=== PATIENT | female | born 1990 | race African-American/Black ===

== ENCOUNTER 2020-06-17 18:15 | Emergency (ER) | payer MEDICAID, OTHER ==
[~2020-06-17] VITALS: Ht 165.1 cm; Wt 91.2 kg
[~2020-06-17 18:15] MED LIST: ADVAIR; ALBUTEROL; MONT10TA35 PO; [UNRECOGNIZED DRUG - CODE] PO
[2020-06-17 18:20] VITALS: BP 127/61
--- NOTE | 2020-06-17 18:23 | NUR ---
Pt ambulated to bed 11.
--- NOTE | 2020-06-17 18:36 | NUR ---
29 Y/O FEMALE C/O VAGINAL BLEEDING X1 DAY. PT STATES SHE IS 4 WEEKS . DENIES ANY RECENT INJURY/TRAUMA. PT STATES SHE IS HAVING MICROCLOTS, AND SCANT BLEEDING. PT IS NOT SOAKING PERIPADS AT THIS TIME. PT IS EXPERIENCING PELVIC CRAMPING, 4/10PAIN. DENIES ANY VOMITING. PT STATES SHE IS HAVING MILD WEAKNESS/DIZZINESS. RESP EVEN AND UNLABORED. AMBULATORY WITH STEADY GAIT. . PMH: ASTHMA
--- NOTE | 2020-06-17 19:15 | NUR ---
RECEIVED REPORT FROM ANGELITO MCGOVERN
--- NOTE | 2020-06-17 19:15 | NUR ---
ULTRASOUND AT BEDSIDE
[2020-06-17 19:18] LABS: BASOPHILS # (AUTO) 0.1 K/uL (0.00-0.22); BASOPHILS % (AUTO) 0.9 % (0.0-2.0); EOSINOPHILS # (AUTO) 0.7 K/uL (0-0.4); EOSINOPHILS % (AUTO) 7.3 % (0.0-4.0); HEMATOCRIT 40.5 % (36-48); LYMPHOCYTES # (AUTO) 2.1 K/uL (2.5-16.5); LYMPHOCYTES % (AUTO) 21.3 % (20.5-51.1); MEAN CORPUSCULAR HEMOGLOBIN 27 pg (27-31); MEAN CORPUSCULAR HGB CONC 32 g/dL (33-37); MEAN CORPUSCULAR VOLUME 85.1 fL (80-94); MONOCYTES # (AUTO) 0.5 K/uL (0.8-1.0); MONOCYTES % (AUTO) 5.3 % (1.7-9.3); NEUTROPHILS # (AUTO) 6.3 K/uL (1.8-7.7); NEUTROPHILS % (AUTO) 65.2 % (42.2-75.2); PLATELET COUNT (AUTO) 306 K/uL (140-450); RED BLOOD CELL COUNT(AUTO) 4.76 MIL/uL (4.20-5.40); RED CELL DISTRIBUTION WIDTH 14.9 % (11.6-13.7); WHITE BLOOD COUNT (AUTO) 9.7 K/uL (4.8-10.8)
[2020-06-17 21:04] VITALS: BP 125/61
--- NOTE | 2020-06-17 21:05 | NUR ---
Patient discharged with v/s stable. Written and verbal after care instructions given and explained. Patient verbalized understanding. Ambulatory with steady gait. All questions addressed prior to discharge. Advised to follow up with PMD.
== END 2020-06-17 21:05 | disposition home or self-care (01) ==
LOC: MED 18:15
DX: O20.8 Other hemorrhage in early pregnancy (principal); J45.909 Unspecified asthma, uncomplicated; Z3A.01 Less than 8 weeks gestation of pregnancy
CPT/HCPCS: 36415; 76817; 84702; 85025; 86901; 99284; Q0092

== ENCOUNTER 2020-08-29 05:32 | Observation (INO) | payer OTHER, SELFPAY ==
[~2020-08-29] VITALS: Ht 170.2 cm; Wt 85.7 kg
[2020-08-29 05:36] VITALS: BP 146/81
--- NOTE | 2020-08-29 05:43 | NUR ---
PT AMBUALTED TO BED 4 WITH STEADY GAIT.
--- NOTE | 2020-08-29 05:44 | NUR ---
30 YO F BIB SELF FOR C/O SOB. PT STATES SHE WOKE UP X 2 HOURS AGO FEELING SOB WITH CHEST TIGHTNESS. PT STATES SHE USED INHALER THIS AM AND DID NOT RELIEVE SOB. AUDIBLE INSP/EXP WHEEZE NOTED. 92% ON ROOM AIR. ERMD MADE AWARE HX: ASTHMA RX: INHALER AX: DECADRON AND PEANUTS. LMP: 08/28/20
--- NOTE | 2020-08-29 05:45 | NUR ---
RT AT BEDSIDE FOR RESPIRATORY ASSESSMENT.
--- NOTE | 2020-08-29 05:45 | NUR ---
ERMD AT BEDSIDE FOR MEDCICAL EVALUATION.
[2020-08-29] MEDS ORDERED: ALBUTEROL SULFATE/IPRATROPIU 3 ML SOL IH ONE ×3 (05:46→06:15)
[2020-08-29] MEDS ORDERED: methylPREDNISolone SS 125 MG/2 ML VIAL IVP ONE (05:50)
[2020-08-29] MEDS ORDERED: NACL 0.9% 1,000 ML IV ONE (05:50)
[2020-08-29] MEDS ORDERED: MAG SULF 2000 MG/WATER PREMIX 50 ML IV ONE (05:55)
[2020-08-29] MEDS ORDERED: IPRATROPIUM 0.02% 0.5 MG/2.5 ML NEBU INH ONE (06:14)
[2020-08-29 06:40] LABS: BASOPHILS # (AUTO) 0.1 K/uL (0.00-0.22); BASOPHILS % (AUTO) 1.1 % (0.0-2.0); EOSINOPHILS % (AUTO) 10.9 % (0.0-4.0); HEMATOCRIT 35.8 % (36-48); HEMOGLOBIN 11.9 g/dL (12.0-16.0); LYMPHOCYTES # (AUTO) 2.3 K/uL (2.5-16.5); LYMPHOCYTES % (AUTO) 24.6 % (20.5-51.1); MEAN CORPUSCULAR HEMOGLOBIN 28 pg (27-31); MEAN CORPUSCULAR HGB CONC 33 g/dL (33-37); MEAN CORPUSCULAR VOLUME 83.8 fL (80-94); MONOCYTES # (AUTO) 0.7 K/uL (0.8-1.0); MONOCYTES % (AUTO) 7.6 % (1.7-9.3); NEUTROPHILS # (AUTO) 5.2 K/uL (1.8-7.7); NEUTROPHILS % (AUTO) 55.8 % (42.2-75.2); PLATELET COUNT (AUTO) 301 K/uL (140-450); RED BLOOD CELL COUNT(AUTO) 4.28 MIL/uL (4.20-5.40); RED CELL DISTRIBUTION WIDTH 14.7 % (11.6-13.7); WHITE BLOOD COUNT (AUTO) 9.4 K/uL (4.8-10.8)
[2020-08-29] MEDS ORDERED: KETOROLAC 30 MG/ML VIAL IVP ONE (06:45)
--- NOTE | 2020-08-29 07:10 | NUR ---
REPORT GIVEN TO DAY SHIFT FOR CONTINUITY OF CARE.
[2020-08-29 07:15] LABS: ALBUMIN 3.5 g/dL (3.4-5.0); ANION GAP 14.7 (8-16); CARBON DIOXIDE 22.7 mmol/L (21-32); POTASSIUM 3.4 mmol/L (3.5-5.1); TOTAL BILIRUBIN 0.3 mg/dL (0.0-1.0)
--- NOTE | 2020-08-29 07:20 | NUR ---
REPORT RECEIVED FROM FROILAN NIÑO. TX OF CARE AT THIS TIME.
[2020-08-29] MEDS ORDERED: ALBU0.0912 INH (07:27)
[2020-08-29] MEDS ORDERED: BUDE1AER IH (07:27)
[2020-08-29] MEDS ORDERED: FEXO1TAB12 PO (07:27)
[2020-08-29] MEDS ORDERED: ONDANSETRON 4 MG/2 ML VIAL IVP PRN (07:35)
--- NOTE | 2020-08-29 07:37 | NUR ---
COVID SWAB-LINO OBTAINED AND SENT TO THE LAB.
--- NOTE | 2020-08-29 08:17 | NUR ---
Dr. Rangel is evaluating the patient at bedside.
[2020-08-29 08:40] VITALS: BP 122/70
--- NOTE | 2020-08-29 08:40 | NUR ---
RECEIVED THIS 30 YEAR OLD, FEMALE, PER AVEL FROM ER, AWAKE, ALERT, ORIENTED X4, BREATHING SPONTANEOUSLY WITH O2 AT 2L/MIN VIA NC, SATURATING AT 98%, NOT IN DISTRESS. ADMITTED A CASE OF ASTHMA EXACERBATION UNDER THE CARE OF DR. ARMSTRONG. WITH ONGOING IV FLUID WITH 0.9% NS 1L BOLUS INFUSING AT LEFT HAND G 22 IV CANNULA NOTED. SAFETY MEASURES IN PLACE AND CONTINUE MONITOR. MRSA NARES SWAB DONE AND SENT TO LAB.
--- NOTE | 2020-08-29 08:48 | NUR ---
Patient will be admitted to care of ASTHMA EXACERBATION. Admited to TELE. Will go to room 105B. Belongings list completed. Report to FROILAN SANDRA.
[2020-08-29] MEDS: NACL 0.9% 1,000 ML IV SCH (08:55)
--- NOTE | 2020-08-29 10:39 | NUR ---
FULLY AWAKE AND ALERT, NOT IN DISTRESS NOTED.
--- NOTE | 2020-08-29 12:45 | NUR ---
COMPLAINED OF SOB, VITAL SIGNS TAKEN AND RECORDED, SATURATING AT 99%, O2 AT 2L/MIN VIA NC. BILATERAL WHEEZE UPON AUSCULTATION NOTED. RT INFORMED FOR BREATHING TREATMENT.
--- NOTE | 2020-08-29 13:01 | NUR ---
BREATHING TREATMENT RENDERED BY RT, PLACE ON HIGH BACK REST POSITION
[2020-08-29] MEDS: ALBUTEROL 0.083% 2.5 MG/3 ML NEBU INH SCH ×3 (13:02→21:33)
--- NOTE | 2020-08-29 16:50 | NUR ---
COMPLAINED OF BILATERAL LOWER LEG PAIN 05/28, NO PRN MEDS ORDER. DR. ARMSTRONG CONTACTED THRU TEXT MESSAGES, AWAITING REPLY
--- NOTE | 2020-08-29 17:25 | NUR ---
TORADOL 30MG IV ORDERED PRN GIVEN
[2020-08-29] MEDS: methylPREDNISolone SS 40 MG/ML VIAL IVP SCH ×2 (17:28→23:38)
[2020-08-29] MEDS: KETOROLAC 30 MG/ML VIAL IVP PRN ×2 (17:29→23:36)
--- NOTE | 2020-08-29 17:31 | NUR ---
APPARENTLY COMPLAINED OF SOB AND STILL WHEEZY CHEST NOTED, DUE SOLU-MEDROL IV GIVEN AND RT INFORMED FOR BREATHING TREATMENT.
--- NOTE | 2020-08-29 17:37 | NUR ---
BREATHING TREATMENT RENDERED BY RT
--- NOTE | 2020-08-29 18:08 | NUR ---
REGULAR DIET SERVED, ABLE TO CONSUMED 75%, TOLERATED WELL.
--- NOTE | 2020-08-29 18:45 | NUR ---
POTASSIUM LEVEL-3.4, DR. ARMSTRONG CONTACTED THRU TEXT MESSAGES, AWAITING REPLY.
--- NOTE | 2020-08-29 19:00 | NUR ---
RECEIVED BEDSIDE REPORT FROM DAY SHIFT NURSE. PATIENT IS AWAKE, ALERT, AND COOPERATIVE. RESPIRATION EVEN UNLABORED ON ROOM AIR. NO DISTRESS NOTED. SKIN IS WARM AND DRY. IV PATENT AND INTACT. PLAN OF CARE WAS DISCUSSED. ALL SAFETY MEASURES IN PLACE. BED IS AT LOW POSITION. CALL LIGHT WITHIN REACH AND VERBALIZES ITS USE. WILL CONTINUE TO MONITOR.
--- NOTE | 2020-08-29 19:18 | NUR ---
ENDORSED TO LEAD PASTOR IN STABLE CONDITION FOR CONTINUITY OF CARE.
[2020-08-29 20:00] VITALS: BP 119/68
[2020-08-29] MEDS ORDERED: POTASSIUM CHLORIDE 10 MEQ TABER PO SCH (21:00)
--- NOTE | 2020-08-29 21:00 | NUR ---
ALL SCHEDULED MEDS WERE GIVEN PER ORDER. NO ASE NOTED. WILL CONTINUE TO MONITOR.
--- NOTE | 2020-08-29 22:00 | NUR ---
PATIENT IS HUNGRY, PROVIDED SANDWICH
--- NOTE | 2020-08-29 23:45 | NUR ---
PATIENT COMPLAINED OF GENERALIZED PAIN 6/10. PRN PAIN MEDS ADMINISTERED PER ORDER. ALL SCHEDULED MEDS WERE GIVEN PER ORDER. WILL CONTINUE TO MONITOR
[2020-08-30] VITALS: BP 102/60
--- NOTE | 2020-08-30 00:14 | NUR ---
VITALS WERE TAKEN. PATIENT IN STABLE CONDITION. NO DISTRESS NOTED. WILL CONTINUE TO MONITOR.
--- NOTE | 2020-08-30 03:09 | NUR ---
CHECKED PATIENT. PATIENT SLEEPING NO DISTRESS NOTED. WILL CONTINUE TO MONITOR.
[2020-08-30 04:00] VITALS: BP 122/61
--- NOTE | 2020-08-30 04:00 | NUR ---
VITALS WERE TAKEN. PATIENT IN STABLE CONDITION. NO DISTRESS NOTED WILL CONTINUE TO MONITOR
[2020-08-30] MEDS: NACL 0.9% 1,000 ML IV SCH (04:29)
[2020-08-30] MEDS: methylPREDNISolone SS 40 MG/ML VIAL IVP SCH ×2 (05:29→11:37)
[2020-08-30 07:02] LABS: HEMOGLOBIN 11.8 g/dL (12.0-16.0); MEAN CORPUSCULAR HEMOGLOBIN 27 pg (27-31); MEAN CORPUSCULAR HGB CONC 32 g/dL (33-37); MEAN CORPUSCULAR VOLUME 85.5 fL (80-94); PLATELET COUNT (AUTO) 280 K/uL (140-450); RED BLOOD CELL COUNT(AUTO) 4.33 MIL/uL (4.20-5.40); RED CELL DISTRIBUTION WIDTH 14.6 % (11.6-13.7); WHITE BLOOD COUNT (AUTO) 17.3 K/uL (4.8-10.8)
[2020-08-30 07:18] LABS: ALBUMIN 3.3 g/dL (3.4-5.0); CREATININE 0.8 mg/dL (0.6-1.3); TOTAL BILIRUBIN 0.3 mg/dL (0.0-1.0)
--- NOTE | 2020-08-30 07:19 | NUR ---
ENDORSED PATIENT TO DAY SHIFT NURSE AT BEDSIDE FOR CONTINUITY OF CARE
--- NOTE | 2020-08-30 07:21 | NUR ---
RECEIVED REPORT FROM NIGHT, PATIENT IS SLEEPING, ON ROOM AIR, REGULAR DIET, IV SITES INTACT ON LEFT HAND.OXYGEN ON STANDBY. SAFETY MEASURES IN PLACE AND CALL LIGHT WITHIN REACH. WILL CONTINUE TO MONITOR.
[2020-08-30 08:00] VITALS: BP 101/66
--- NOTE | 2020-08-30 08:05 | NUR ---
CHECK VITAL SIGNS NO DISTRESS NOTED AND PATIENT DENIES PAIN. PATIENT EKG ASSESSMENT IS SINUS RHYTHM WITH PVC.SAFETY MEASURES IN PLACE AND CALL LIGHT WITHIN REACH. WILL CONTINUE TO MONITOR.
[2020-08-30 08:31] LABS: LYMPHOCYTES % (MANUAL) 6 % (20-46); MONOCYTES % (MANUAL) 3 % (5-12)
--- NOTE | 2020-08-30 08:35 | NUR ---
PATIENT HAS BEEN SCREENED AND CATEGORIZED LOW NUTRITION RISK. PATIENT WILL BE SEEN WITHIN 7 DAYS OF ADMISSION. 09/04/[address]
[2020-08-30] MEDS ORDERED: MONT10TA35 PO (10:06)
[2020-08-30] MEDS ORDERED: PRED20TA5 PO (10:06)
--- NOTE | 2020-08-30 10:43 | NUR ---
DC PLANNIN YRS OLD FEMALE PATIENT WAS ADMITTED FROM HOME WITH A DX OF ASTHMA EXACERBATION. PT HAS A HX OF ASTHMA. CX SHOWED MILD HYPERINFLATION. RAPID COVID TEST NEGATIVE. STARTED WITH IVF, AND IV SOLU-MEDROL, BREATHING TREATMENT. DC PLAN TO GO HOME WHEN STABLE CM TO FOLLOW.
--- NOTE | 2020-08-30 11:51 | NUR ---
MEDICATION DUE GIVEN AT THIS TIME PATIENT IS STABLE AND NO DISTRESS NOTED
--- NOTE | 2020-08-30 12:00 | NUR ---
DISCHARGED INSTRUCTION GIVEN AT BEDSIDE ENCOURAGED PATIENT TO CONTINUE MEDICATION AND TO FOLLOWUP WITH PCP AFTER 7 DAYS OF DISCHARGE, GAVE PRESCRIPTION AND INSTRUCTED WITH THE MEDICATION DOSAGE AND TO SEEK MEDICAL HELP INCASE OF MEDICAL EMERGENCIES. REMOVED TELEMONITOR AND RETURNED TO KEYING MACHINE OPERATOR, IV SITES INTACT AND COMPLETE NO BLEEDING, REMOVED ID BONDS, CHANGED PATIENT TO OWN CLOTHES AND PT TOOK ALL HER BELONGINGS, ESCORTED PATIENT TO FRONT LOBBY VIA WHEELCHAIR. PT IS DISCHARGE TO HOME. PT IS STABLE
--- NOTE | 2020-08-30 12:50 | NUR ---
SOCIAL WORK NOTE: SW ATTEMPTED TO COMPLETE ASSESSMENT WITH PATIENT BUT PATIENT WAS DISCHARGED.
== END 2020-08-30 12:00 | disposition home or self-care (01) ==
LOC: MED 05:32 → MTU 07:40
PROVIDERS: ADMIT Internal Medicine; ATTEND Internal Medicine
DX: J45.51 Severe persistent asthma with (acute) exacerbation (principal); Z20.828 Contact with and (suspected) exposure to other viral communicable diseases; Z79.51 Long term (current) use of inhaled steroids; Z79.899 Other long term (current) drug therapy; Z91.010 Allergy to peanuts; Z88.8 Allergy status to other drugs, medicaments and biological substances
CPT/HCPCS: 36415; 71045; 80053; 84702; 85025; 87081; 87426; 94640; 94760; 96361; 96365; 96366; 96375; 96376; 99285; G0378; J1885; J2920; J2930; J3475; J7030; J7613; Q0092; J7644

== ENCOUNTER 2020-09-01 17:43 | Emergency (ER) | payer OTHER, SELFPAY ==
[~2020-09-01] VITALS: Ht 167.6 cm; Wt 93.7 kg
[~2020-09-01 17:43] MED LIST changes: -ADVAIR; +ALBU0.0912 INH; -ALBUTEROL; +BUDE1AER IH; +FEXO1TAB12 PO; +PRED20TA5 PO; -[UNRECOGNIZED DRUG - CODE] PO
[2020-09-01 17:48] VITALS: BP 102/59
--- NOTE | 2020-09-01 18:03 | NUR ---
PATIENT AMBULATED TO BED 7.
--- NOTE | 2020-09-01 18:11 | NUR ---
PATIENT PRESENTS TO ED WITH UPPER/LOWER ABDOMINAL PAIN THAT BEGAN YESTERDAY ACCOMPANIED WITH NAUSEA AND VOMITING YESTERDAY . PT STATES SHE IS ALSO HAVE SWELLING OF RIGHT ANKLE AND TENDER CALF, ACCOMPANIED WITH PAIN, 7/10. MILD SWELLING NOTED AT RIGHT ANKLE SITE. CALF IS TENDER BUT DOES NOT APPEAR SWOLLEN. SKIN IS PINK/WARM/DRY; AAOX4 WITH EVEN AND STEADY GAIT; LUNGS CLEAR BL; HR EVEN AND REGULAR; PT DENIES ANY FEVER, CP, SOB, OR COUGH AT THIS TIME; PATIENT STATES PAIN OF 7/10 AT THIS TIME; VSS; PATIENT POSITIONED FOR COMFORT; HOB ELEVATED; BEDRAILS UP X2; BED DOWN. ER MD MADE AWARE OF PT STATUS.
[2020-09-01] MEDS ORDERED: KETOROLAC 30 MG/ML VIAL IM ONE (18:55)
--- NOTE | 2020-09-01 19:14 | NUR ---
Assumed patient care.
--- NOTE | 2020-09-01 19:18 | NUR ---
ULTRASOUND AT BEDSIDE.
--- NOTE | 2020-09-01 20:04 | NUR ---
Patient resting in bed. No distress noted. Pain is a 0/10. Bed at the lowest position. Side railx1. Will continue to monitor.
[2020-09-01 20:22] LABS: ALBUMIN 3.3 g/dL (3.4-5.0); ANION GAP 11.4 (8-16); CARBON DIOXIDE 26.4 mmol/L (21-32); CREATININE 1.1 mg/dL (0.6-1.3); POTASSIUM 3.8 mmol/L (3.5-5.1); TOTAL BILIRUBIN 0.3 mg/dL (0.0-1.0)
--- NOTE | 2020-09-01 21:07 | NUR ---
Patient resting quietly in bed. Pain is still at a 0/10. Will continue to monitor.
--- NOTE | 2020-09-01 21:15 | NUR ---
Patient discharged with v/s stable. Written and verbal after care instructions given and explained. Patient alert, oriented and verbalized understanding of instructions. Ambulatory with steady gait. All questions addressed prior to discharge. ID band removed. Patient advised to follow up with PMD. Rx of Bentyl given. Patient educated on indication of medication including possible reaction and side effects. Opportunity to ask questions provided and answered.
[2020-09-01 21:16] VITALS: BP 114/65
== END 2020-09-01 21:15 | disposition home or self-care (01) ==
LOC: MED 17:43
DX: R10.9 Unspecified abdominal pain (principal); K85.90 Acute pancreatitis without necrosis or infection, unspecified; M79.89 Other specified soft tissue disorders; Z88.8 Allergy status to other drugs, medicaments and biological substances; Z91.010 Allergy to peanuts; Z98.890 Other specified postprocedural states; Z79.899 Other long term (current) drug therapy
CPT/HCPCS: 36415; 80053; 81002; 81025; 83690; 93971; 96372; 99284; J1885; Q0092

== ENCOUNTER 2020-11-14 08:29 | Emergency (ER) | payer OTHER, SELFPAY ==
--- NOTE | 2020-11-14 09:24 | NUR ---
PATIENT LEFT WITHOUT BEING SEEN BY DR. NOLASCO. NO FURTHER CARE PROVIDED FOR PATIENT.
== END 2020-11-14 09:24 | disposition left against medical advice (07) ==
LOC: MED 08:29
DX: J45.909 Unspecified asthma, uncomplicated (principal); Z53.21 Procedure and treatment not carried out due to patient leaving prior to being seen by health care provider

== ENCOUNTER 2020-12-21 12:29 | Emergency (ER) | payer OTHER, SELFPAY ==
[~2020-12-21] VITALS: Ht 167.6 cm; Wt 82.6 kg
--- NOTE | 2020-12-21 12:32 | NUR ---
Patient ambulated with assistance to bed 08
[2020-12-21 12:35] VITALS: BP 90/61
[2020-12-21] MEDS: ALBUTEROL SULFATE/IPRATROPIU 3 ML SOL IH ONE (12:35)
[2020-12-21] MEDS: IPRATROPIUM 0.02% 0.5 MG/2.5 ML NEBU INH ONE (12:43)
[2020-12-21] MEDS: ALBUTEROL 0.083% 2.5 MG/3 ML NEBU INH ONE (12:43)
[2020-12-21] MEDS: methylPREDNISolone SS 125 MG/2 ML VIAL IVP ONE (12:54)
[2020-12-21] MEDS: LACTATED RINGERS 1,000 ML IV ONE (12:56)
[2020-12-21] MEDS: MAG SULF 2000 MG/WATER PREMIX 50 ML IV ONE (12:56)
--- NOTE | 2020-12-21 12:56 | NUR ---
LAB AT BEDSIDE.
--- NOTE | 2020-12-21 13:02 | NUR ---
PT UNABLE TO PRODUCE URINE SPECIMEN AT THIS TIME. GIVEN A CUP OF WATER. WILL RECHECK IN 15MINS.
--- NOTE | 2020-12-21 13:02 | NUR ---
LINO AND NOVEL SWABS DONE. WALKED TO LAB BY FROILAN ANDREWS.
--- NOTE | 2020-12-21 13:04 | NUR ---
30 YO F C/O SOB X TODAY. DENIES FEVER, COUGH. UPON ASSESSMENT, O2 SAT 96%. BREATHING LABORED, WITH EXPIRATORY WHEEZES ON ALL LUNG DENIS. PT POSITIONED WITH HEAD OF BED ELEVATED TO 45DEGREES. 2 SIDERAILS UP. ERMD MADE AWARE OF PT STATUS. PMH: ASTHMA
[2020-12-21 13:06] LABS: BASOPHILS # (AUTO) 0.1 K/uL (0.00-0.22); BASOPHILS % (AUTO) 1.1 % (0.0-2.0); EOSINOPHILS # (AUTO) 0.8 K/uL (0-0.4); EOSINOPHILS % (AUTO) 7.7 % (0.0-4.0); HEMATOCRIT 39.3 % (36-48); HEMOGLOBIN 12.8 g/dL (12.0-16.0); LYMPHOCYTES # (AUTO) 2.6 K/uL (2.5-16.5); LYMPHOCYTES % (AUTO) 24.7 % (20.5-51.1); MEAN CORPUSCULAR HEMOGLOBIN 27 pg (27-31); MEAN CORPUSCULAR HGB CONC 33 g/dL (33-37); MEAN CORPUSCULAR VOLUME 83.8 fL (80-94); MONOCYTES # (AUTO) 0.6 K/uL (0.8-1.0); MONOCYTES % (AUTO) 5.5 % (1.7-9.3); NEUTROPHILS # (AUTO) 6.3 K/uL (1.8-7.7); PLATELET COUNT (AUTO) 304 K/uL (140-450); RED BLOOD CELL COUNT(AUTO) 4.69 MIL/uL (4.20-5.40); RED CELL DISTRIBUTION WIDTH 13.8 % (11.6-13.7); WHITE BLOOD COUNT (AUTO) 10.4 K/uL (4.8-10.8)
[2020-12-21] MEDS: MORPHINE SULFATE 4 MG/ML SYR IVP ONE (13:08)
[2020-12-21] MEDS: ONDANSETRON 4 MG/2 ML VIAL IVP ONE (13:17)
[2020-12-21 13:22] LABS: ALBUMIN 3.5 g/dL (3.4-5.0); ANION GAP 9.5 (8-16); CARBON DIOXIDE 25.3 mmol/L (21-32); CREATININE 1.1 mg/dL (0.6-1.3); POTASSIUM 3.8 mmol/L (3.5-5.1); TOTAL BILIRUBIN 0.4 mg/dL (0.0-1.0)
[2020-12-21] MEDS ORDERED: IPRATROPIUM 0.02% 0.5 MG/2.5 ML NEBU INH ONE (13:57)
[2020-12-21 15:45] VITALS: BP 90/61
--- NOTE | 2020-12-21 15:55 | NUR ---
Patient discharged with v/s stable. Written and verbal after care instructions given and explained. Patient alert, oriented and verbalized understanding of instructions. Ambulatory with steady gait. All questions addressed prior to discharge. ID band removed. Patient advised to follow up with PMD. Rx of FAMOTIDINE, PREDNISONE, ALBUTEROL given. Patient educated on indication of medication including possible reaction and side effects. Opportunity to ask questions provided and answered.
--- NOTE | 2020-12-23 19:56 | NUR ---
LATE ENTRY--- MAGNESIUM SULFATE INFUSION DISCONTINUED AT 1456 AND LACTATED RINGER INFUSION DISCONTINUED AT 1555
== END 2020-12-21 15:55 | disposition home or self-care (01) ==
LOC: MED 12:29
DX: J45.901 Unspecified asthma with (acute) exacerbation (principal); J45.909 Unspecified asthma, uncomplicated; Z88.8 Allergy status to other drugs, medicaments and biological substances; Z79.899 Other long term (current) drug therapy; Z98.890 Other specified postprocedural states; Z91.010 Allergy to peanuts
CPT/HCPCS: 71045; 80053; 83690; 84702; 85025; 87426; 94644; 96365; 96375; 99291; J2270; J2405; J2930; J3475; J7613; J7644; U0003

== ENCOUNTER 2021-09-06 07:54 | Emergency (ER) | payer OTHER, SELFPAY ==
[~2021-09-06] VITALS: Ht 167.6 cm; Wt 82.6 kg
--- NOTE | 2021-09-06 07:59 | NUR ---
Patient wheelchair assisted to bed 1 at this time.
[2021-09-06] MEDS ORDERED: ALBUTEROL 0.083% 2.5 MG/3 ML NEBU INH ONE (08:00)
[2021-09-06] MEDS ORDERED: predniSONE 20 MG TAB PO ONE (08:00)
[2021-09-06] MEDS ORDERED: IPRATROPIUM 0.02% 0.5 MG/2.5 ML NEBU INH ONE (08:00)
[2021-09-06 08:07] VITALS: BP 115/59
--- NOTE | 2021-09-06 08:10 | NUR ---
[facility]N THERAPY AND RESPIRATORY DRUGS GIVEN ORDERED ENCOURAGED PATIENT FOR INTERMITTENT DEEP BREATHING AND COUGH DURING THERAPY
--- NOTE | 2021-09-06 08:13 | NUR ---
31 Y/O F BIB SELF FROM HOME, C/O SOB AND CHEST PAIN 8/10 SHARP AND ACHING FOR 3 DAYS. PT STATES SHE HAS BEEN UNABLE TO TAKE INHALER DUE TO IT BEING EMPTY. DENIES N/V/D; SKIN IS PINK/WARM/DRY; AAOX4 WITH EVEN AND STEADY GAIT; LUNGS WHEEZING BL; HR EVEN AND REGULAR; PATIENT STATES PAIN OF 8/10 AT THIS TIME; PATIENT POSITIONED FOR COMFORT; HOB ELEVATED; BEDRAILS UP X2; BED DOWN. ER MD MADE AWARE OF PT STATUS. PMH: ASTHMA MED: INHALER ALBUTEROL ALLERGY: PEANUT AND DECADRON
--- NOTE | 2021-09-06 08:15 | NUR ---
RT AT BEDSIDE
--- NOTE | 2021-09-06 08:41 | NUR ---
PT WAS TITRATED DOWN TO 4 L O2 AT THIS TIME. O2 SATURATION AT 100%, IMPROVED RESPIRATIONS AT THIS TIME.
[2021-09-06] MEDS ORDERED: PRED20TA5 PO (09:22)
[2021-09-06] MEDS ORDERED: BUDE1AER IH (09:22)
[2021-09-06] MEDS ORDERED: ALBU0.0912 IH (09:22)
[2021-09-06 10:04] VITALS: BP 105/61
--- NOTE | 2021-09-06 10:04 | NUR ---
Patient discharged with v/s stable. Written and verbal after care instructions given and explained. Patient alert, oriented and verbalized understanding of instructions. Ambulatory with steady gait. All questions addressed prior to discharge. ID band removed. Patient advised to follow up with PMD. Rx of PROVENTIL, SYMBICORT, AND DELTASONE given. Patient educated on indication of medication including possible reaction and side effects. Opportunity to ask questions provided and answered.
== END 2021-09-06 10:04 | disposition home or self-care (01) ==
LOC: MED 07:54
DX: J45.901 Unspecified asthma with (acute) exacerbation (principal); Z88.8 Allergy status to other drugs, medicaments and biological substances; Z91.010 Allergy to peanuts
CPT/HCPCS: 94640; 99283; J7512; J7613; J7644

== ENCOUNTER 2022-01-24 09:11 | Emergency (ER) | payer OTHER, SELFPAY ==
[~2022-01-24] VITALS: Ht 167.6 cm; Wt 83.5 kg
[~2022-01-24 09:11] MED LIST changes: +ALBU0.0912 IH; -ALBU0.0912 INH
[2022-01-24 09:18] VITALS: BP 133/76
[2022-01-24] MEDS ORDERED: ALBUTEROL SULFATE/IPRATROPIU 3 ML SOL IH ONE ×2 (09:25→10:00)
--- NOTE | 2022-01-24 09:25 | NUR ---
31 Y/O F AMBULATED TO BED 5, C/O SOB SINCE 5AM. TRIED 4 BREATHING TX AT HOME, NO RELIEF. 08/28 CHEST. PAIN. AUDIBLE WHEEZING MEDHX: ASTHMA NDKA
--- NOTE | 2022-01-24 09:30 | NUR ---
RT AT BEDSIDE FOR BREATHING TREATMENT
--- NOTE | 2022-01-24 09:31 | NUR ---
[facility]N THERPAY AND RESPIRATORY DRUG GIVEN ORDERED ENCOURAGED PATIENT FOR INTERMITTENT DEEP BVREATHING DURING THERAPY
[2022-01-24] MEDS ORDERED: MAG SULF 2000 MG/WATER PREMIX 50 ML IV ONE (10:00)
[2022-01-24] MEDS ORDERED: DEXAMETHASONE 4 MG/ML VIAL PO ONE (10:00)
--- NOTE | 2022-01-24 10:09 | NUR ---
[facility] THERAPY AND RESPIRATORY DRUG GIVEN ORDERED ENCOURAGED INTERMITTENT DEEP BREATHING DURING THERAPY
--- NOTE | 2022-01-24 10:13 | NUR ---
RT AT BEDSIDE
[2022-01-24] MEDS ORDERED: PRED20TA5 PO (11:00)
[2022-01-24] MEDS ORDERED: BUDE1AER2 IH (11:00)
[2022-01-24] MEDS ORDERED: ALBU0.0912 INH (11:01)
[2022-01-24 11:29] VITALS: BP 130/74
--- NOTE | 2022-01-24 11:45 | NUR ---
Patient discharged with v/s stable. Written and verbal after care instructions given ABOUT ASTHMA and explained. Patient alert, oriented and verbalized understanding of instructions. Ambulatory with steady gait. All questions addressed prior to discharge. ID band removed. Patient advised to follow up with PMD. Rx of PRENESONE & ALBUTEROL SULFATE given. Patient educated on indication of medication including possible reaction and side effects. Opportunity to ask questions provided and answered.
== END 2022-01-24 11:45 | disposition home or self-care (01) ==
LOC: MED 09:11
DX: J45.901 Unspecified asthma with (acute) exacerbation (principal); Z91.010 Allergy to peanuts; Z79.899 Other long term (current) drug therapy
CPT/HCPCS: 71045; 94640; 96365; 99284; J1100; J3475; Q0092

== ENCOUNTER 2022-05-14 03:12 | Inpatient (IN) | payer OTHER ==
[~2022-05-14] VITALS: Ht 167.6 cm; Wt 81.6 kg
[~2022-05-14 03:12] MED LIST changes: +ALBU0.0912 INH; +BUDE1AER2 IH
[2022-05-14 03:14] VITALS: BP 119/56
--- NOTE | 2022-05-14 03:17 | NUR ---
PT TAKEN TO BED 11
--- NOTE | 2022-05-14 03:18 | NUR ---
Dr. Ken examining patient.
[2022-05-14] MEDS ORDERED: ALBUTEROL SULFATE/IPRATROPIU 3 ML SOL IH ONE (03:20)
[2022-05-14] MEDS ORDERED: ALBUTEROL 0.083% 2.5 MG/3 ML NEBU INH ONE ×3 (03:20→06:10)
--- NOTE | 2022-05-14 03:20 | NUR ---
patient placed 4L NC per ER MD orders.
--- NOTE | 2022-05-14 03:22 | NUR ---
Respiratory Therapist at bedside for respiratory intervention.
--- NOTE | 2022-05-14 03:48 | NUR ---
patient titrated down o2 to 2L 96%. ER MD aware.
[2022-05-14] MEDS ORDERED: MAG SULF 2000 MG/WATER PREMIX 50 ML IV ONE (03:55)
[2022-05-14] MEDS ORDERED: methylPREDNISolone SS 125 MG/2 ML VIAL IVP ONE (03:55)
[2022-05-14] MEDS ORDERED: KETOROLAC 15 MG/ML VIAL IVP ONE (04:05)
--- NOTE | 2022-05-14 04:24 | NUR ---
swabbed patient for covid and sent to quality assurance qa lab technician
[2022-05-14 04:51] LABS: ANION GAP 9.5 (8-16); CARBON DIOXIDE 26.9 mmol/L (21-32); POTASSIUM 3.4 mmol/L (3.5-5.1)
[2022-05-14 04:54] LABS: BASOPHILS # (AUTO) 0.1 K/uL (0.00-0.22); BASOPHILS % (AUTO) 1.2 % (0.0-2.0); EOSINOPHILS # (AUTO) 0.6 K/uL (0-0.4); EOSINOPHILS % (AUTO) 7.1 % (0.0-4.0); HEMATOCRIT 36.8 % (36-48); HEMOGLOBIN 11.9 g/dL (12.0-16.0); LYMPHOCYTES # (AUTO) 2.2 K/uL (2.5-16.5); LYMPHOCYTES % (AUTO) 24.1 % (20.5-51.1); MEAN CORPUSCULAR HEMOGLOBIN 27 pg (27-31); MEAN CORPUSCULAR HGB CONC 32 g/dL (33-37); MEAN CORPUSCULAR VOLUME 82.9 fL (80-94); MONOCYTES # (AUTO) 0.9 K/uL (0.8-1.0); MONOCYTES % (AUTO) 10.3 % (1.7-9.3); NEUTROPHILS # (AUTO) 5.2 K/uL (1.8-7.7); NEUTROPHILS % (AUTO) 57.3 % (42.2-75.2); PLATELET COUNT (AUTO) 243 K/uL (140-450); RED BLOOD CELL COUNT(AUTO) 4.44 MIL/uL (4.20-5.40); RED CELL DISTRIBUTION WIDTH 14.8 % (11.6-13.7); WHITE BLOOD COUNT (AUTO) 9.1 K/uL (4.8-10.8)
--- NOTE | 2022-05-14 05:16 | NUR ---
PEAK FLOW PERFORMED WITH PT WITH AVG 200 LPM
--- NOTE | 2022-05-14 05:31 | NUR ---
PT ABLE TO HAVE FULL CONVERSATIONS BUT FEELS FATIGUED. PATIENT STILL HAS COUGH, AND WHEEZING BUT PER PATIENT "I FEEL MUCH BETTER." PATIENT NO LONGER NASAL FLARING, NO USE OF ACCESSORY MUSCLES, AND NO LONGER TACHYPNIC. SAFETY MEASURES ARE IN PLACE, PATIENT ATTACHED TO THE SOUP MIXER, AND WILL CONTINUE TO MONITOR PATIENT.
[2022-05-14] MEDS ORDERED: MAGNESIUM OXIDE 400 MG TAB PO PRN (06:10)
[2022-05-14] MEDS ORDERED: HYDROcodone/APAP 5/325 MG 1 TAB TAB PO PRN (06:10)
[2022-05-14] MEDS ORDERED: MORPHINE SULFATE 4 MG/ML SYR IVP PRN (06:10)
[2022-05-14] MEDS ORDERED: KCL 20 MEQ/WATER INJ PREMIX 200 ML IV PRN (06:10)
[2022-05-14] MEDS ORDERED: ACETAMINOPHEN 325 MG TAB PO PRN (06:10)
[2022-05-14] MEDS ORDERED: ONDANSETRON 4 MG/2 ML VIAL IVP PRN (06:10)
--- NOTE | 2022-05-14 06:34 | NUR ---
RT at bedside for breathing tx
--- NOTE | 2022-05-14 07:21 | NUR ---
Pt report given to Holly MCGOVERN. Transfer of care at this time.
--- NOTE | 2022-05-14 07:48 | NUR ---
Curtis lyons in [facility] - 05/14/22 at 0751 by MEDRJJ Pt transferred to [facility] via bed to room 106b with FROILAN Watts .
[2022-05-14 08:00] VITALS: BP 105/59
--- NOTE | 2022-05-14 08:12 | NUR ---
Pt transferred to Tele via bed to room 106b with FROILAN Watts .
--- NOTE | 2022-05-14 08:15 | NUR ---
RECEIVED REPORT FROM ED NURSE FOR PT CONTINUITY OF CARE. PLAN OF CARE DISCUSSED. PT IS AWAKE, A/OX4 AND IN STABLE CONDITION. BREATHING IS MILDLY LABORED, ON 3L O2 WITH WHEEZING BREATH SOUNDS BILATERALLY THROUGHOUT. PT IS CONTINENT OF THE BOWEL AND BLADDER, AND ABLE TO AMBULATE ON A STEADY GAIT. SKIN IS INTACT, PT CURRENTLY DENIES PAIN AT THIS TIME. 22G IV NOTED ON THE RIGHT THUMB.
--- NOTE | 2022-05-14 08:20 | NUR ---
Patient will be admitted to care of emil fernando. Admitted to telemetry. Will go to room 106B. Belongings list completed. Report to kandice rincon.
--- NOTE | 2022-05-14 08:25 | NUR ---
Pt report given to kandice rincon. Transfer of care at this time.
[2022-05-14] MEDS: NACL 0.9% 1,000 ML IV SCH ×2 (09:00→17:44)
[2022-05-14] MEDS: AZITHROMYCIN 500 MG in DEXTROSE 5% 250 ML IV SCH (10:00)
--- NOTE | 2022-05-14 10:00 | NUR ---
PT VISUALLY ASSESSED. PT REQUESTED BREATHING TREATMENT, STATING SHE WAS HAVING AN INCREASED DIFFICULTY BREATHING. PT O2 SAT WAS 98% ON 3L. PAGED RT AT THE BEDSIDE. PT IN STABLE CONDITION.
[2022-05-14] MEDS: ENOXAPARIN 40 MG/0.4 ML SYR SUBQ SCH (10:24)
[2022-05-14] MEDS: ALBUTEROL SULFATE/IPRATROPIU 3 ML SOL IH SCH ×3 (10:35→19:00)
[2022-05-14 12:00] VITALS: BP 111/62
--- NOTE | 2022-05-14 12:00 | NUR ---
PT VISUALLY ASSESSED. PT DENIES PAIN AT THIS TIME, BREATHING IS STILL MILDLY LABORED WITH WHEEZING PRESENT. PT IN STABLE CONDITION.
[2022-05-14] MEDS: methylPREDNISolone SS 40 MG/ML VIAL IVP SCH ×3 (13:08→23:26)
--- NOTE | 2022-05-14 14:00 | NUR ---
PT VISUALLY ASSESSED. PT DENIES PAIN AT THIS TIME. PT BREATHING EVENLY AND UNLABORED. WHEEZING STILL PRESENT. PT IN STABLE CONDITION.
[2022-05-14 16:00] VITALS: BP 94/57
--- NOTE | 2022-05-14 16:10 | NUR ---
PT COMPLAINED OF IV BEEPING. IV WAS FLUSHED, AND STILL PATENT. CONTINUED IVF NS @ 80ML/HR.
--- NOTE | 2022-05-14 17:44 | NUR ---
PT VISUALLY ASSESSED, CURRENTLY AWAKE AND IN STABLE CONDITION. PT DENIES ANY PAIN AT THIS TIME, NO SIGNS OF DISTRESS NOTED.
--- NOTE | 2022-05-14 18:46 | NUR ---
PT COMPLAINED OF DRYNESS AND IRRITATION IN THE NARES DUE TO NASAL CANNULA. RT WAS PAGED TO THE BEDSIDE TO ADD HUMIDIFICATION TO O2. BOX FAN GIVEN TO PT FOR HEAT IN ROOM, AC NOT WORKING.
--- NOTE | 2022-05-14 19:05 | NUR ---
ENDORSED PT TO NIGHTSHIFT NURSE FOR CONTINUITY OF CARE. PLAN OF CARE DISCUSSED, PT IN STABLE CONDITION.
[2022-05-14 20:00] VITALS: BP 113/62
[2022-05-14] MEDS ORDERED: NON-FORMULARY ITEM (Budesonide/Formoterol Fumarate* (Symbicort 160-4.5 Mcg Inhaler*) 2 PUF IH SCH (21:00)
[2022-05-15] VITALS: BP_SYST 103; BP_SYST 115; BP_DIAS 52; BP_DIAS 68
[2022-05-15] MEDS: ALBUTEROL SULFATE/IPRATROPIU 3 ML SOL IH SCH ×4 (01:36→20:08)
[2022-05-15 04:00] VITALS: BP 111/59
[2022-05-15] MEDS: AZITHROMYCIN 500 MG in DEXTROSE 5% 250 ML IV SCH (05:52)
[2022-05-15] MEDS: NACL 0.9% 1,000 ML IV SCH ×2 (05:52→23:02)
[2022-05-15] MEDS: methylPREDNISolone SS 40 MG/ML VIAL IVP SCH ×3 (05:52→17:44)
[2022-05-15] MEDS ORDERED: ALBUTEROL SULFATE/IPRATROPIU 3 ML SOL IH PRN (06:18)
[2022-05-15 06:46] LABS: ANION GAP 9.8 (8-16); CARBON DIOXIDE 22.6 mmol/L (21-32); CREATININE 0.8 mg/dL (0.6-1.3); POTASSIUM 4.4 mmol/L (3.5-5.1); TOTAL BILIRUBIN 0.2 mg/dL (0.0-1.0)
[2022-05-15 07:44] VITALS: BP 114/67
--- NOTE | 2022-05-15 08:06 | NUR ---
PT IS AOX4, VSS NAD NOTED. PT AWARE OF POC, QUESTIONS/CONCERNS ANSWERED AND SAFETY MEASURES IN PLACE.
[2022-05-15] MEDS: MONTELUKAST SODIUM 10 MG TAB PO SCH (08:31)
[2022-05-15] MEDS: ENOXAPARIN 40 MG/0.4 ML SYR SUBQ SCH (08:34)
--- NOTE | 2022-05-15 09:00 | NUR ---
PATIENT HAS BEEN SCREENED AND CATEGORIZED LOW NUTRITION RISK. PATIENT WILL BE SEEN WITHIN 7 DAYS OF ADMISSION. 05/20/[address]
--- NOTE | 2022-05-15 09:00 | NUR ---
Pt understood and tolerated all medications, questions/concerns answered.
[2022-05-15 12:00] VITALS: BP 110/65
--- NOTE | 2022-05-15 14:24 | NUR ---
DC PLANNING: THE PATIENT PRESENTED WITH C/O SOB AND WHEEZING. PATIENT USED HER ALBUTEROL INH MULTIPLE TIMES WITHOUT RELIEF. PATIENT TACHYPNEIC IN ED, SATTING 94% ON RA. GIVEN SOLU MEDROL 125 IV IN ED, ADMITTED WITH STATUS ASTHMATICUS. PATIENT SEEN BY PULMONOLOGY, DOCUMENTATION SHOWS PATIENT RAN OUT OF SYMBICORT INH. RECOMMENDATION TO CONTINUE Z=TOBI, START TRELLEGY INSTEAD OF SYMBICORT OP, CONTINUE SINGULAIR, F/U WITH PULMONOLOGY SHE CURRENTLY DOESN'T SEE ONE OP. PATIENT ON SOLU MEDROL, DUONEBS, SINGULAIR AND ZITHORMAX. WILL DC HOME WHEN CLINICALLY STABLE, CM WILL FOLLOW.
[2022-05-15 16:08] VITALS: BP 108/62
--- NOTE | 2022-05-15 18:54 | NUR ---
PT IN STABLE CONDITION, VSS, EDUARDOX4, AWARE OF POC, WILL ENDORSE TO STRADDLE BUG DRIVER RN.
--- NOTE | 2022-05-15 19:17 | NUR ---
REPORT GIVEN TO FROILAN VALADEZ FOR CONTINUITY OF CARE.
--- NOTE | 2022-05-15 19:28 | NUR ---
RECEIVED PT FROM AM NURSE FOR CONTINUITY OF CARE.PT IS STABLE
[2022-05-15 20:00] VITALS: BP 105/69
--- NOTE | 2022-05-15 21:30 | NUR ---
PATIENT IN BED,RT GAVE HER BREATHING TREATMENT TOLERATED WELL, NO SOB NOTED
[2022-05-16] VITALS: BP 111/74
[2022-05-16] MEDS: ALBUTEROL SULFATE/IPRATROPIU 3 ML SOL IH SCH ×2 (01:17→09:33)
[2022-05-16] MEDS: methylPREDNISolone SS 40 MG/ML VIAL IVP SCH ×3 (01:24→12:03)
--- NOTE | 2022-05-16 03:00 | NUR ---
PATIENT ASLEEP,BREATHING EVEN AND [id number],NO DISTRESS NOTED
[2022-05-16 04:00] VITALS: BP 136/80
[2022-05-16] MEDS: AZITHROMYCIN 500 MG in DEXTROSE 5% 250 ML IV SCH (05:54)
--- NOTE | 2022-05-16 06:30 | NUR ---
IV CAME OFF,CHANGED IV SITE TORT ARM 22G
--- NOTE | 2022-05-16 07:10 | NUR ---
RECEIVED REPORT FROM FUR MATCHER NURSE FOR CONTINUITY OF CARE. PATIENT AWAKE ALERT NO DISTRESS NOTED. RESPIRATION EVEN AND NOT LABORED NO SHORTNESS OF BREATH ON ROOM AIR NO COUGH OR WHEEZING NOTED. IV SITE RIGHT HAND MADISYN 22 RUNNING AT NS 80CC/HOURS. ALL SAFETY MEASURE IN PLACE.
[2022-05-16 07:24] LABS: ANION GAP 10.6 (8-16); CARBON DIOXIDE 24.9 mmol/L (21-32); MAGNESIUM 1.9 mg/dL (1.8-2.4); POTASSIUM 4.5 mmol/L (3.5-5.1); TOTAL BILIRUBIN 0.1 mg/dL (0.0-1.0)
[2022-05-16 08:00] VITALS: BP 109/66
--- NOTE | 2022-05-16 08:00 | NUR ---
GOT REPORT FROM THE NIGHT NURSE THE PLAN OF CARE DISCUSSED WITH PT AND COVERING DRIVE TESTER GALILEO, PT RESTING COMFORTABLY IN BED. [id number]
[2022-05-16] MEDS: MONTELUKAST SODIUM 10 MG TAB PO SCH (08:42)
[2022-05-16] MEDS: ENOXAPARIN 40 MG/0.4 ML SYR SUBQ SCH (08:42)
[2022-05-16] MEDS: NACL 0.9% 1,000 ML IV SCH (08:48)
--- NOTE | 2022-05-16 09:00 | NUR ---
PATIENT CALLED ASKING WHEN IS GOING TO BE DISCHARGE I EXPLAINED TO HER THAT THE DOCTOR WILL BE HERE AND NEED TO SEE HER FIRST BEFORE SHE CAN BE DISCHARGE. PATIENT VERBALIZED I'M OKAY ALREADY.
--- NOTE | 2022-05-16 11:00 | NUR ---
PATIENT ASKED AGAIN WHEN IS THE DOCTOR COMING I INFORM HER THAT THE DOCTOR WILL BE HERE BUT I DON'T KNOW THE EXACT TIME THAT HE WILL BE HERE.
[2022-05-16 12:00] VITALS: BP 110/64
--- NOTE | 2022-05-16 12:30 | NUR ---
RT AT BED SIDE GIVE PATIENT TREATMENT.
--- NOTE | 2022-05-16 13:00 | NUR ---
PATIENT CALLED AGAIN AND SAID WHAT EXACTLY THE DOCTOR WILL BE HERE. I TOLD HER THAT HE WILL BE HERE BUT I DON'T KNOW THE EXACT TIME AND PATIENT SAID WILL JUST SIGN AMA. EXPLAINED TO HER THE RISK AND BENEFIT OF GOING AGAIST MEDICAL ADVICE AND SHE SAID I KNOW ALREADY.
--- NOTE | 2022-05-16 13:05 | NUR ---
EXPLAINED TO HER AGAIN THE RISK AND BENEFIT OF GOING AGAINST MEDICAL ADVICE.
--- NOTE | 2022-05-16 13:07 | NUR ---
INFORM DR. TSAI PATIENT GO AGAINST MEDICAL ADVICE.
--- NOTE | 2022-05-16 13:10 | NUR ---
PATIENT NAME BAND AND IV SITE REMOVED WITH CATHETER INTACT. PATIENT WALKED GOING OUT ON STABLE CONDITION.
[2022-05-16] MEDS ORDERED: BUDESONIDE 0.5 MG/2 ML NEBU INH SCH (19:30)
== END 2022-05-16 13:15 | disposition left against medical advice (07) | DRG 141 ==
LOC: MED 03:12 → MTU 06:06
PROVIDERS: ADMIT Student in an Organized Health Care Education/Training Program; ATTEND Student in an Organized Health Care Education/Training Program
DX: J45.901 Unspecified asthma with (acute) exacerbation (principal); J96.01 Acute respiratory failure with hypoxia; E44.1 Mild protein-calorie malnutrition; Z20.822 Contact with and (suspected) exposure to COVID-19; Z53.29 Procedure and treatment not carried out because of patient's decision for other reasons; Z79.899 Other long term (current) drug therapy; Z91.010 Allergy to peanuts; Z68.29 Body mass index [BMI] 29.0-29.9, adult
CPT/HCPCS: 36415; 36600; 71045; 80048; 80053; 82785; 82803; 83735; 83880; 85025; 87081; 93005; 94640; 96365; 96375; 99291; J0456; J1650; J1885; J2920; J2930; J3475; J7060; J7613; Q0092

== ENCOUNTER 2022-06-17 14:46 | Emergency (ER) | payer OTHER ==
[~2022-06-17] VITALS: Ht 167.6 cm; Wt 89.8 kg
[~2022-06-17 14:46] MED LIST changes: -ALBU0.0912 INH; -BUDE1AER2 IH; -PRED20TA5 PO
[2022-06-17 15:00] VITALS: BP 118/61
[2022-06-17] MEDS ORDERED: TETRACAINE HCL/PF 0.5% OPTH 4 ML BTL OP ONE (15:15)
[2022-06-17] MEDS ORDERED: FLUORESCEIN OPTH STRIP 1 MG OP ONE (15:15)
[2022-06-17] MEDS ORDERED: TETRACAINE HCL/PF 0.5% OPTH 4 ML BTL ONE (16:31)
[2022-06-17] MEDS ORDERED: FLUORESCEIN OPTH STRIP 1 MG ONE (16:31)
--- NOTE | 2022-06-17 16:38 | NUR ---
JEROMY Cuevas at bedside
[2022-06-17] MEDS ORDERED: CIPR2.5D3 RIGHT EYE (16:49)
[2022-06-17] MEDS ORDERED: IBUP-2213 PO (16:49)
[2022-06-17 17:03] VITALS: BP 118/61
--- NOTE | 2022-06-17 17:03 | NUR ---
Patient discharged with v/s stable. Written and verbal after care instructions about corneal ulcer given and explained. Patient alert, oriented and verbalized understanding of instructions. Ambulatory with steady gait. All questions addressed prior to discharge. ID band removed. Patient advised to follow up with PMD. Rx of Cipro, Ibuprofen given. Patient educated on indication of medication including possible reaction and side effects. Opportunity to ask questions provided and answered.
== END 2022-06-17 17:03 | disposition home or self-care (01) ==
LOC: MED 14:46
DX: H16.001 Unspecified corneal ulcer, right eye (principal); J45.909 Unspecified asthma, uncomplicated; Z91.010 Allergy to peanuts
CPT/HCPCS: 99283

== ENCOUNTER 2022-12-02 22:37 | Emergency (ER) | payer OTHER ==
[~2022-12-02] VITALS: Ht 167.6 cm; Wt 81.6 kg
[~2022-12-02 22:37] MED LIST changes: +CIPR2.5D3 RIGHT EYE; +IBUP-2213 PO
[2022-12-02 22:45] VITALS: BP 118/82
--- NOTE | 2022-12-02 22:49 | NUR ---
TO BED AMBULATORY
[2022-12-02] MEDS ORDERED: ALBUTEROL 0.083% 2.5 MG/3 ML NEBU INH ONE (22:59)
[2022-12-02] MEDS ORDERED: MAG SULF 2000 MG/WATER PREMIX 50 ML IV ONE (22:59)
[2022-12-02] MEDS ORDERED: methylPREDNISolone SS 125 MG in WATER STERILE 2 ML IV ONE (22:59)
[2022-12-02] MEDS ORDERED: NACL 0.9% 1,000 ML IV ONE (22:59)
--- NOTE | 2022-12-02 23:00 | NUR ---
pt is alert and oriented x4, complaning SOB and wheezing noted. pt is ambulatory. sating in 95 persent on room air
--- NOTE | 2022-12-03 00:29 | NUR ---
PORTABLE XRAY DONE
[2022-12-03 00:39] LABS: BASOPHILS # (AUTO) 0.2 K/uL (0.00-0.22); BASOPHILS % (AUTO) 1.8 % (0.0-2.0); EOSINOPHILS # (AUTO) 0.9 K/uL (0-0.4); EOSINOPHILS % (AUTO) 8.7 % (0.0-4.0); HEMATOCRIT 37.3 % (36-48); HEMOGLOBIN 12.4 g/dL (12.0-16.0); LYMPHOCYTES # (AUTO) 3.1 K/uL (2.5-16.5); LYMPHOCYTES % (AUTO) 30.9 % (20.5-51.1); MEAN CORPUSCULAR HEMOGLOBIN 27 pg (27-31); MEAN CORPUSCULAR HGB CONC 33 g/dL (33-37); MEAN CORPUSCULAR VOLUME 81.9 fL (80-94); MONOCYTES # (AUTO) 0.5 K/uL (0.8-1.0); MONOCYTES % (AUTO) 4.6 % (1.7-9.3); NEUTROPHILS # (AUTO) 5.4 K/uL (1.8-7.7); PLATELET COUNT (AUTO) 251 K/uL (140-450); RED BLOOD CELL COUNT(AUTO) 4.56 MIL/uL (4.20-5.40); RED CELL DISTRIBUTION WIDTH 15.3 % (11.6-13.7); WHITE BLOOD COUNT (AUTO) 10.1 K/uL (4.8-10.8)
[2022-12-03 01:07] LABS: ALBUMIN 3.8 g/dL (3.4-5.0); ANION GAP 15.9 (8-16); CARBON DIOXIDE 21.8 mmol/L (21-32); POTASSIUM 3.7 mmol/L (3.5-5.1); TOTAL BILIRUBIN 0.2 mg/dL (0.0-1.0)
[2022-12-03] MEDS ORDERED: PRED20TA5 PO (01:47)
[2022-12-03] MEDS ORDERED: ALBU0.0912 INH (01:47)
[2022-12-03] MEDS ORDERED: FLUT1DSK2 IH (01:47)
[2022-12-03] MEDS ORDERED: ALBU0.5S1 NEB (01:47)
[2022-12-03 01:50] VITALS: BP 114/68
--- NOTE | 2022-12-03 01:50 | NUR ---
Patient discharged with v/s stable. Written and verbal after care instructions given and explained. Patient alert, oriented and verbalized understanding of instructions. Ambulatory with steady gait. All questions addressed prior to discharge. ID band removed. Patient advised to follow up with PMD. Rx of PROVENTIL, ABUTEROL, DELTASONE, SLUTICASONE given. Patient educated on indication of medication including possible reaction and side effects. Opportunity to ask questions provided and answered.
[2022-12-03] MEDS ORDERED: methylPREDNISolone SS 125 MG/2 ML VIAL IVP ONE (08:25)
== END 2022-12-03 01:50 | disposition home or self-care (01) ==
LOC: MED 22:37
DX: J45.901 Unspecified asthma with (acute) exacerbation (principal)
CPT/HCPCS: 36415; 71045; 80053; 85025; 94640; 96361; 96374; 99285; J3475; J7030; J7613; Q0092

== ENCOUNTER 2022-12-09 10:42 | Emergency (ER) | payer OTHER ==
[~2022-12-09] VITALS: Ht 167.6 cm; Wt 81.6 kg
[~2022-12-09 10:42] MED LIST changes: +ALBU0.0912 INH; +ALBU0.5S1 NEB; +FLUT1DSK2 IH; +PRED20TA5 PO
[2022-12-09 10:47] VITALS: BP 120/63
[2022-12-09] MEDS ORDERED: ALBUTEROL SULFATE/IPRATROPIU 3 ML SOL IH ONE ×2 (10:48→10:50)
--- NOTE | 2022-12-09 10:51 | NUR ---
Pt bibs for sob upon waking. Pt has hx of asthma and was seen here in ED recently. Pt states she did nothing out of the ordinary. Pt is a/o x 4, vss, no ss of acute distress, breathing equal and unlabored, speech clear. Sating at 97% on RA. Pt breathing rapidly. Brought to bed 11. Breathing tx administered. Pt on monitor in bed. Rails up x 2.
--- NOTE | 2022-12-09 10:51 | NUR ---
NEB TX GIVEN AT BEDSIDE AT THIS TIME. PT HAS BL WHEEZING WITH INSPIRATORY AND EXPIRATORY, AUDIBLE MOIST COUGH.
[2022-12-09] MEDS ORDERED: IPRATROPIUM 0.02% 0.5 MG/2.5 ML NEBU INH ONE (11:25)
[2022-12-09] MEDS ORDERED: MAG SULF 2000 MG/WATER PREMIX 50 ML IV ONE (11:25)
[2022-12-09] MEDS ORDERED: ALBUTEROL 0.083% 2.5 MG/3 ML NEBU INH ONE (11:25)
[2022-12-09] MEDS ORDERED: methylPREDNISolone SS 125 MG/2 ML VIAL IVP ONE (11:25)
--- NOTE | 2022-12-09 12:14 | NUR ---
IV started. Medications administered as ordered. Awaitin urine sample to test hcg before Mag administration.
--- NOTE | 2022-12-09 13:00 | NUR ---
Pt gave urinei sample for hcg test. Test resulted negative.
[2022-12-09] MEDS ORDERED: PRED20TA5 PO (13:20)
[2022-12-09] MEDS ORDERED: BUDE1AER IH (13:20)
[2022-12-09] MEDS ORDERED: PRON INH (13:20)
[2022-12-09 14:36] LABS: BASOPHILS % (AUTO) 0.4 % (0.0-2.0); EOSINOPHILS # (AUTO) 0.2 K/uL (0-0.4); EOSINOPHILS % (AUTO) 2.4 % (0.0-4.0); HEMATOCRIT 38.1 % (36-48); HEMOGLOBIN 12.3 g/dL (12.0-16.0); LYMPHOCYTES # (AUTO) 0.7 K/uL (2.5-16.5); LYMPHOCYTES % (AUTO) 7.4 % (20.5-51.1); MEAN CORPUSCULAR HEMOGLOBIN 27 pg (27-31); MEAN CORPUSCULAR HGB CONC 32 g/dL (33-37); MEAN CORPUSCULAR VOLUME 83.6 fL (80-94); MONOCYTES # (AUTO) 0.2 K/uL (0.8-1.0); MONOCYTES % (AUTO) 1.9 % (1.7-9.3); NEUTROPHILS # (AUTO) 8.4 K/uL (1.8-7.7); NEUTROPHILS % (AUTO) 87.9 % (42.2-75.2); PLATELET COUNT (AUTO) 289 K/uL (140-450); RED BLOOD CELL COUNT(AUTO) 4.55 MIL/uL (4.20-5.40); RED CELL DISTRIBUTION WIDTH 15.3 % (11.6-13.7)
[2022-12-09 14:38] LABS: WHITE BLOOD COUNT (AUTO) 9.6 K/uL (4.8-10.8)
[2022-12-09 14:39] LABS: ANION GAP 12.2 (8-16); CARBON DIOXIDE 26.5 mmol/L (21-32); POTASSIUM 3.7 mmol/L (3.5-5.1)
--- NOTE | 2022-12-09 15:57 | NUR ---
ACI and px, given and reviewed with pt. Pt verbalized understanding and will follow up with primary. Pt a/o x 4, vss, no ss of acute distress, speech clear, steady gait witnesses. IV removed and inspected for patency. Pt aware of px.
[2022-12-09 15:58] VITALS: BP 127/81
--- NOTE | 2022-12-15 09:10 | NUR ---
LATE ENTRY -- CONFIRMED WITH NURSE MAG SULFATE INFUSION COMPLETED AT 1345 12/12/22
== END 2022-12-09 15:57 | disposition home or self-care (01) ==
LOC: MED 10:42
DX: J96.01 Acute respiratory failure with hypoxia (principal); J45.901 Unspecified asthma with (acute) exacerbation; R00.0 Tachycardia, unspecified; J96.00 Acute respiratory failure, unspecified whether with hypoxia or hypercapnia; Z79.899 Other long term (current) drug therapy; Z91.010 Allergy to peanuts
CPT/HCPCS: 36415; 71045; 80048; 81025; 85025; 94640; 96365; 96375; 99291; J2930; J3475; J7613; J7644; Q0092; 99284

== ENCOUNTER 2023-02-15 10:04 | Emergency (ER) | payer OTHER ==
[~2023-02-15] VITALS: Ht 167.6 cm; Wt 99.8 kg
[~2023-02-15 10:04] MED LIST changes: +MONT-72 PO; -MONT10TA35 PO; +PRON INH
[2023-02-15 10:06] VITALS: BP 110/76
--- NOTE | 2023-02-15 10:12 | NUR ---
PT AMBULATED TO ER BED 7
[2023-02-15] MEDS ORDERED: DEXAMETHASONE 4 MG/ML VIAL PO ONE (10:25)
--- NOTE | 2023-02-15 10:35 | NUR ---
PRESENTS TO ED WITH C/O SORE THROAT AND BODY ACHES SINCE YESTERDAY. REPORTS TAKING TYLENOL AND THROAT LOZENGES WITH MILD RELIEF. PATIENT DENIES COUGH, FEVERS OR RECENT SICK CONTACTS.
--- NOTE | 2023-02-15 10:40 | NUR ---
RAPID STREP AND CULTURE COLLECTED AND WALKED TO LAB
[2023-02-15] MEDS ORDERED: IBUP-2213 PO (11:15)
[2023-02-15] MEDS ORDERED: AMOX1TAB8 PO (11:15)
--- NOTE | 2023-02-15 11:37 | NUR ---
Patient discharged with v/s stable. Written and verbal after care instructions ABOUT STREP THROAT given and explained. Patient alert, oriented and verbalized understanding of instructions. Ambulatory with steady gait. All questions addressed prior to discharge. ID band removed. Patient advised to follow up with PMD. Rx of AMOX-CLAV [id number], IBUPROFEN given. Patient educated on indication of medication including possible reaction and side effects. Opportunity to ask questions provided and answered.
[2023-02-15 11:38] VITALS: BP 110/76
== END 2023-02-15 11:37 | disposition home or self-care (01) ==
LOC: MED 10:04
DX: J02.0 Streptococcal pharyngitis (principal); J45.909 Unspecified asthma, uncomplicated; Z91.010 Allergy to peanuts; Z79.899 Other long term (current) drug therapy
CPT/HCPCS: 87081; 99283; J1100

== ENCOUNTER 2024-08-11 17:41 | Emergency (ER) | payer OTHER ==
[~2024-08-11] VITALS: Ht 167.6 cm; Wt 96.6 kg
[~2024-08-11 17:41] MED LIST changes: +AMOX1TAB8 PO
[2024-08-11 17:53] VITALS: BP 129/84; PULSE 82; RESP 18; TEMP 98.7; O2SAT 99
== END 2024-08-11 20:30 | disposition left against medical advice (07) ==
LOC: MED 17:41
DX: H57.11 Ocular pain, right eye (principal); H57.89 Other specified disorders of eye and adnexa; J45.909 Unspecified asthma, uncomplicated; Z53.21 Procedure and treatment not carried out due to patient leaving prior to being seen by health care provider; Z91.010 Allergy to peanuts